=== PATIENT | female | born 1945 | race Hispanic/Latino ===

== ENCOUNTER → 2018-08-05 | Outpatient (CLI) | payer OTHER | LOC: MAMMO 13:39 | PROVIDERS: ATTEND Internal Medicine | DX: Z12.31 Encounter for screening mammogram for malignant neoplasm of breast (principal) | CPT/HCPCS: 77067 ==

== ENCOUNTER → 2022-07-17 | Outpatient (CLI) | payer MEDICARE | LOC: MAMMO 11:24 | PROVIDERS: ATTEND Internal Medicine | DX: Z12.31 Encounter for screening mammogram for malignant neoplasm of breast (principal); M85.88 Other specified disorders of bone density and structure, other site | CPT/HCPCS: 77067; 77080 ==

== ENCOUNTER 2023-09-01 14:09 | Outpatient (RCR) | payer MEDICARE ==
[2023-09-06] MEDS ORDERED: NAPROXEN250 MG PO (12:02)
== END 2023-09-10 ==
LOC: PT 14:09
PROVIDERS: ATTEND Internal Medicine
DX: M54.50 Low back pain, unspecified (principal); M51.86 Other intervertebral disc disorders, lumbar region

== ENCOUNTER 2023-10-01 16:00 | Outpatient (RCR) | payer MEDICARE ==
[~2023-10-01 16:00] MED LIST: NAPROXEN250 MG PO
== END 2023-10-11 | disposition home or self-care (01) ==
LOC: PT 16:00
PROVIDERS: ATTEND Internal Medicine
DX: M54.50 Low back pain, unspecified (principal); M25.511 Pain in right shoulder

== ENCOUNTER 2023-11-07 13:00 | Outpatient (RCR) | payer MEDICARE | END 2023-11-10 | LOC: PT 13:00 | PROVIDERS: ATTEND Internal Medicine | DX: M51.06 Intervertebral disc disorders with myelopathy, lumbar region (principal) ==

== ENCOUNTER 2023-12-04 11:00 | Outpatient (RCR) | payer MEDICARE | END 2023-12-11 | LOC: PT 11:00 | PROVIDERS: ATTEND Internal Medicine | DX: M51.06 Intervertebral disc disorders with myelopathy, lumbar region (principal) ==

== ENCOUNTER 2023-12-16 07:21 | Outpatient (RCR) | payer MEDICARE | END 2024-01-10 | LOC: PT 07:21 | PROVIDERS: ATTEND Internal Medicine | DX: M51.06 Intervertebral disc disorders with myelopathy, lumbar region (principal) ==

== ENCOUNTER → 2024-04-21 | Outpatient (REF) | payer MEDICARE | LOC: MAMMO 11:52 | PROVIDERS: ATTEND Internal Medicine | DX: Z12.31 Encounter for screening mammogram for malignant neoplasm of breast (principal) | CPT/HCPCS: 77067 ==